=== PATIENT | female | born 1950 | race Caucasian/White ===

== ENCOUNTER 2017-09-09 22:05 | Observation (INO) ==
[2017-09-09] MEDS ORDERED: Nitroglycerin 0.4 MG TAB.SUBL SL ONE (22:12)
--- NOTE | 2017-09-09 22:25 | Emergency Department Note ---
Disposition Clinical Impression: Chest pain Qualifiers: Chest pain type: unspecified Qualified Code(s): R07.9 - Chest pain, unspecified Disposition: Admitted As Inpatient Condition: Good Referrals: Mariya Seymour MD [Primary Care Provider] - Forms: ED Satisfaction Letter Chest Pain HPI - General Chief Complaint: ED Chest Pain Stated Complaint: chest pain Time Seen by Provider: 09/09/17 22:11 Source: patient, EMS Mode of arrival: EMS Limitations: no limitations Vital Signs Reviewed: Yes Nursing Notes Reviewed: Yes - History of Present Illness HPI Narrative: 66-year-old female history of hypertension, "leaky aortic valve" who presents to the ER with a chief complaint of chest pain. Patient reports she felt well today and then roughly half an hour prior to arrival she was sitting at home and noticed her pulse was fast. She states she then developed pressure in the center of her chest with radiation into her shoulders. She states she felt short of breath during that time. No diaphoresis, dizziness, nausea or vomiting. She reports a prior history of a workup 2 years ago at the [facility] for valvular pathology which she states was fine and was told she could follow up in 5 years. She reports a history of a left heart catheterization 4 years performed here without any intervention. No history of early cardiac in her family. No other complaints. Patient was given one aspirin and one nitroglycerin prior to arrival. 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 Denies: nausea, vomiting, diaphoresis Treatments prior to arrival chest pain: aspirin, nitroglycerin - Related Data On Oral Contraceptives: No Home Medications Medication Instructions Recorded Confirmed Biotin 5 mg PO DAILY 11/23/15 11/23/15 BuPROPion SR (12 HR) [Wellbutrin 150 mg PO DAILY 11/23/15 11/23/15 SR] Carvedilol [Coreg] 6.25 mg PO BID 11/23/15 11/23/15 Cholecalciferol (Vitamin D3) 800 unit PO BID 11/23/15 11/23/15 [Vitamin D] Flaxseed/Omega3,6,9/Fatty Acid 1 each PO DAILY 11/23/15 11/23/15 [Flax Seed Oil 1,300 mg Softgel] Fluticasone Propionate Nasal 100 mcg NS BID PRN 11/23/15 11/23/15 [Flonase] Gabapentin [Neurontin] 300 mg PO TID 11/23/15 11/23/15 Garlic 1,000 mg PO TID 11/23/15 11/23/15 Grape Seed Extract [Grape Seed] 100 mg PO DAILY 11/23/15 11/23/15 Hydrocodone/Acetaminophen [[place] 1 tab PO Q6H PRN 11/23/15 11/23/15 5-325 Tablet] Lactobacillus Combination No.8 1 cap PO DAILY 11/23/15 11/23/15 [Adult Probiotic] Levothyroxine [Synthroid] 100 mcg PO DAILY 11/23/15 11/23/15 Loratadine [Claritin] 10 mg PO DAILY 11/23/15 11/23/15 Lutein 40 mg PO DAILY 11/23/15 11/23/15 Magnesium Oxide [Magnesium] 500 mg PO DAILY 11/23/15 11/23/15 Omeprazole [PriLOSEC] 20 mg PO DAILY 11/23/15 11/23/15 OxyCODONE/APAP 5/325 [Percocet 1 each PO Q8HR PRN 11/23/15 11/23/15 5/325 MG] Patient Taking Own Medication 1 tab PO DAILY 11/23/15 11/23/15 Prasterone (Dhea) [Dhea] 25 mg PO DAILY 11/23/15 11/23/15 Quercetin Dihydrate 250 mg PO TID 11/23/15 11/23/15 Turm/Ging/Tirso/Yuc/Jesus Alberto/Valarie/Hor 1 each PO TID 11/23/15 11/23/15 [Tumersaid Tablet] Ubidecarenone [Co Q10] 200 mg PO DAILY 11/23/15 11/23/15 hydroCHLOROthiazide 25 mg PO DAILY 11/23/15 11/23/15 [Hydrochlorothiazide] Previous Rx's Medication Instructions Recorded Doxycycline 100 mg PO BID #14 capsule 04/08/17 Allergies Allergy/AdvReac Type Severity Reaction Status Date / Time Erythromycin Base Allergy Swelling Verified 11/23/15 10:54 of Lip/Tongue/Throat Hydromorphone [From Dilaudid] Allergy Swelling Verified 11/23/15 10:54 of Lip/Tongue/Throat levofloxacin [From Levaquin] Allergy Swelling Verified 11/23/15 10:54 of Lip/Tongue/Throat Macrolide Antibiotics Allergy Swelling Verified 11/23/15 10:54 of Lip/Tongue/Throat meperidine [From Demerol] Allergy Swelling Verified 11/23/15 10:54 of Lip/Tongue/Throat methylprednisolone Allergy facial Verified 11/23/15 10:54 [From Medrol] swelling, insomnia metronidazole [From Flagyl] Allergy Swelling Verified 11/23/15 10:54 of Lip/Tongue/Throat Penicillins Allergy Swelling Verified 11/23/15 10:54 of Lip/Tongue/Throat Quinolones Allergy Swelling Verified 11/23/15 10:54 of Lip/Tongue/Throat shellfish derived Allergy Swelling Verified 11/23/15 10:54 of Lip/Tongue/Throat soy Allergy Swelling Verified 11/23/15 10:54 of Lip/Tongue/Throat [place] Allergy Swelling Verified 11/23/15 10:54 of Lip/Tongue/Throat Sulfa (Sulfonamide Allergy Swelling Verified 11/23/15 10:54 Antibiotics) of Lip/Tongue/Throat All systems ED: reviewed and negative except as stated. 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 - Social History Smoking Status: Never smoker Alcohol use: Reports: occasionally Drug use: Reports: none Physical Exam - General Limitations: no limitations General appearance: alert, in distress - Head Head exam: atraumatic, normocephalic - Eye Eye exam: Present: normal appearance - ENT ENT exam: normal exam - Neck Neck exam: Present: normal inspection, full ROM - Chest Chest inspection: Present: normal inspection, symmetric chest wall rise - Respiratory Respiratory exam: Present: normal lung sounds bilaterally - Cardiovascular Cardiovascular exam: Present: regular rate, normal rhythm, normal heart sounds - Abdominal Exam Abdominal exam: Present: soft, Non-Tender. Absent: tenderness - Extremities Exam Extremities exam: Present: normal inspection, full ROM - Expanded Upper Extremity Exam Shoulder exam: Present: normal inspection, full ROM Arm exam: Present: normal inspection, full ROM Elbow exam: Present: normal inspection, full ROM Forearm/Wrist exam: Present: normal inspection, full ROM Hand exam: Present: normal inspection, full ROM - Expanded Lower Extremity Exam Hip/Pelvis exam: Present: normal inspection, full ROM Upper leg exam: Present: normal inspection, full ROM Knee exam: Present: normal inspection, full ROM Lower leg exam: Present: normal inspection, full ROM Ankle exam: Present: normal inspection, full ROM Foot/toe exam: Present: normal inspection, full ROM - Skin Skin exam: Present: warm, dry Course Course Narrative: Patient seen and examined. EKG does not demonstrate STEMI. We will get an x- ray as well as labs including troponin. She did have an episode where she was bradycardic into the 40s as well as hypotensive roughly 50 systolic. Family bedside reports that she usually runs low. We will hold on nitroglycerin at this time and give her IV fluids. - Reevaluation(s) Reevaluation #1: Discussed results of imaging labs the patient. Her pain had improved to 3 without any intervention. We are holding on nitroglycerin at this time is she had an episode of hypotension. She is also listed is anaphylactic to most pain medications at our disposal currently. She agrees with admission to the hospital. We will talk with the hospitalist. Vital Signs Temperature 97.7 F 09/09/17 22:09 Pulse Rate 51 09/09/17 22:09 Respiratory Rate 18 09/09/17 22:09 Blood Pressure 92/57 09/09/17 22:09 O2 Sat by Pulse Oximetry 92 09/09/17 22:09 Temperature 97.7 F 09/09/17 22:09 Pulse Rate 87 09/09/17 23:50 Respiratory Rate 18 09/09/17 22:09 Blood Pressure 110/73 09/09/17 23:50 O2 Sat by Pulse Oximetry 95 09/09/17 23:50 Oxygen Delivery Oxygen Delivery Nasal Cannula Chest Pain - MDM Narrative Medical decision making narrative: 66-year-old female presents to the ER due to chest pain. Started abruptly prior to arrival at rest. Reports substernal with radiation into her shoulders. Associated dyspnea. Her initial EKG was sinus rhythm without ischemic features. Chest x-ray with atelectasis versus pneumonia. She is afebrile without a cough or leukocytosis. She was given 1 nitroglycerin and did have an episode of hypotension and bradycardia here. We are currently holding on any additional nitroglycerin as well as pain medication as she has prior anaphylactic reactions. Initial troponin within normal limits. Patient given IV fluids concern on maintenance fluids. She is admitted to the hospitalist service for chest pain. - Lab Data Lab results reviewed: Yes I reviewed the patient's lab results. Result diagrams: 09/09/17 22:22 09/09/17 22:22 Lab Results 09/09/17 09/09/17 09/09/17 Range/Units 22:22 22:22 22:22 WBC 6.4 (4.3-11.1) K/mcL RBC 4.29 (3.82-4.97) M/mcL Hgb 12.0 (11.5-15.4) g/dL Hct 37.6 (35.3-44.9) % MCV 87.6 (83.0-100.0) fL MCH 28.0 (28.0-33.3) pg MCHC 31.9 (31.6-35.5) g/dL RDW 14.0 (11.5-14.5) % Plt Count 253 (140-400) K/mcL MPV 9.0 L (9.4-12.4) fL Immature Gran % 0.3 (0-4) % Seg Neutrophils % 56.2 % Lymphocytes % 30.5 % Monocytes % 10.0 % Eosinophils % 2.5 % Basophils % 0.5 % Neutrophils # 3.6 (1.6-8.9) K/mcL Lymphocytes # 2.0 (0.6-4.6) K/mcL Monocytes # 0.6 (0.0-1.3) K/mcL Eosinophils # 0.2 (0.0-0.6) K/mcL Basophils # 0.0 (0.0-0.2) K/mcL PT 11.2 (9.4-12.1) Seconds INR 1.0 APTT 27.3 (26.0-36.0) Seconds Sodium (136-145) mEq/L Potassium (3.5-5.1) mEq/L Chloride (98-107) mEq/L Carbon Dioxide (23-29) mEq/L BUN (8-23) mg/dL Creatinine (0.60-1.20) mg/dL Est GFR ( Amer) (> 60) Est GFR (Non-Af Amer) (> 60) BUN/Creatinine Ratio (6-26) Glucose (70-105) mg/dL Calculated Osmolality (280-300) Calcium (8.6-10.3) mg/dL Troponin I (< 0.04) ng/mL B-Natriuretic Peptide 34 (Less than 100) pg/mL 09/09/17 09/09/17 Range/Units 22:22 22:22 WBC (4.3-11.1) K/mcL RBC (3.82-4.97) M/mcL Hgb (11.5-15.4) g/dL Hct (35.3-44.9) % MCV (83.0-100.0) fL MCH (28.0-33.3) pg MCHC (31.6-35.5) g/dL RDW (11.5-14.5) % Plt Count (140-400) K/mcL MPV (9.4-12.4) fL Immature Gran % (0-4) % Seg Neutrophils % % Lymphocytes % % Monocytes % % Eosinophils % % Basophils % % Neutrophils # (1.6-8.9) K/mcL Lymphocytes # (0.6-4.6) K/mcL Monocytes # (0.0-1.3) K/mcL Eosinophils # (0.0-0.6) K/mcL Basophils # (0.0-0.2) K/mcL PT (9.4-12.1) Seconds INR APTT (26.0-36.0) Seconds Sodium 140 (136-145) mEq/L Potassium 3.6 (3.5-5.1) mEq/L Chloride 107 (98-107) mEq/L Carbon Dioxide 25 (23-29) mEq/L BUN 10 (8-23) mg/dL Creatinine 0.71 (0.60-1.20) mg/dL Est GFR ( Amer) > 60 (> 60) Est GFR (Non-Af Amer) > 60 (> 60) BUN/Creatinine Ratio 14 (6-26) Glucose 106 H (70-105) mg/dL Calculated Osmolality 289 (280-300) Calcium 9.4 (8.6-10.3) mg/dL Troponin I < 0.03 (< 0.04) ng/mL B-Natriuretic Peptide (Less than 100) pg/mL - Radiology Data Radiology results reviewed: Yes I reviewed the patient's radiology results. Chest X-Ray 09/09/17 22:12 IMPRESSION: Bibasilar airspace disease, atelectasis versus pneumonia. D/ / Mireya Gann MD / Mireya Gann MD Interpreting Provider: Mireya Gann MD - EKG Data EKG attestation: Yes I reviewed and interpreted this EKG. EKG results narrative: EKG demonstrates sinus rhythm with rate of 77 bpm. Left axis deviation. Normal intervals. Normal R-wave progression. No gross ST elevations or depressions. No acute ischemic findings. No significant changes from previous EKG dated 02/03/15 Heart Score - Score History: Slightly Suspicious EKG: Normal Age: 45-65 Risk Factors: 1-2 risk factors Troponin: Less than normal limit HEART Score Total: 2 S.B.A.R. - S.B.A.R. Situation: Demographics, MOA Background: Presenting Complaint, Relevant PMH, Meds, & Allergies Assessment: Vital Signs, Course and respsone to treatment, Exam Concerns, Patient/Family Expectation, Pertinant Lab Results, Outstanding Labs Recommendation: Barrier(s) to disposition, Recommendation based on pending studies, treatments, or consults S.B.A.R. Report Given to: Dr. Davis S.B.A.R. Repor Time: 00:53 (Requests tele and [facility]) Attestation Statement - Attestation Attestation: I, Mulugeta Stone MD, personally evaluated this patient and discussed their management with the resident physician. I reviewed the resident's note and agree with the documented findings, medical decision making, and plan of care. 66-year-old female presents to the emergency department by embolus with a complaint of diffuse anterior chest pain which started about 30-40 minutes prior to arrival. Onset was while at rest. Patient describes the pain as like pressure on her chest. It started in the epigastric area and then radiated throughout the entire anterior chest up to the base of the neck. No radiation down the arms. Some mild nausea. No diaphoresis. No shortness of breath. Patient has had a cardiac catheter several years ago which was negative per patient. On examination patient is a well-developed well-nourished well-appearing elderly female in no acute distress. She does appear somewhat anxious. She is alert and oriented 3. There is no cyanosis or diaphoresis. Neck is supple and nontender with no lymphadenopathy. Breath sounds are clear and equal bilaterally. Heart regular rate and rhythm. Abdomen is soft and nontender with normal bowel sounds. No pedal edema. Labs reviewed. Troponin normal. EKG shows a normal sinus rhythm with a heart rate of 66. No acute ST segment elevation or depression or T-wave inversions to suggest acute ischemia. Chest x-ray shows some bibasilar airspace disease, atelectasis versus pneumonia. Patient has no cough or fever. Patient received aspirin and one nitroglycerin per EMS in route to the hospital with minimal relief. She rated her chest pain an 8 out of 10 at the worst. On arrival here she rated at 7 out of 10. After arrival here the patient had a vagal episode and became bradycardic with heart rate down in the 40s. She dropped her blood pressure to about 51/31 and became very pale and diaphoretic with decreased responsiveness. This episode resolved spontaneously over a few minutes. She was given a fluid bolus. The hospitalist, Dr. Davis, was consulted and accepted admission of the patient.
[2017-09-09] MEDS ORDERED: 0.9 % Sodium Chloride 1,000 ML IVC ONE (22:27)
[2017-09-09 22:31] LABS: Basophils % 0.5 %; Eosinophils # 0.2 K/mcL (0.0-0.6); Eosinophils % 2.5 %; Hematocrit 37.6 % (35.3-44.9); Immature Granulocytes % 0.3 % (0-4); Lymphocytes % 30.5 %; Mean Corpuscular HGB Conc 31.9 g/dL (31.6-35.5); Mean Corpuscular Volume 87.6 fL (83.0-100.0); Monocytes # 0.6 K/mcL (0.0-1.3); Neutrophils # 3.6 K/mcL (1.6-8.9); Platelet Count 253 K/mcL (140-400); Red Blood Count 4.29 M/mcL (3.82-4.97); Segmented Neutrophils % 56.2 %
[2017-09-09 22:37] LABS: Prothrombin Time 11.2 Seconds (9.4-12.1)
[2017-09-09 22:39] LABS: Activated Partial Thrombo Time 27.3 Seconds (26.0-36.0)
[2017-09-09 23:10] LABS: BUN/Creatinine Ratio 14 (6-26); Blood Urea Nitrogen 10 mg/dL (8-23); Calcium 9.4 mg/dL (8.6-10.3); Carbon Dioxide 25 mEq/L (23-29); Chloride 107 mEq/L (98-107); Glucose 106 mg/dL (70-105); Osmolality,Calculated 289 (280-300); Potassium 3.6 mEq/L (3.5-5.1); Sodium 140 mEq/L (136-145); eGFR For African Americans > 60 (> 60); eGFR For Non-African Americans > 60 (> 60)
[2017-09-10] MEDS ORDERED: 0.9 % Sodium Chloride 1,000 ML IVC SCH (00:45)
[2017-09-10] MEDS ORDERED: Acetaminophen 325 MG TABLET PO PRN (03:16)
[2017-09-10] MEDS ORDERED: Naloxone 0.4 MG/ML INJ IVP PRN (03:16)
[2017-09-10] MEDS ORDERED: Fluticasone Propionate Nasal 50 MCG/SPRAY BOTTLE NS PRN (03:19)
[2017-09-10] MEDS ORDERED: *HR* OxyCODONE Immed Rel 5 MG TABLET PO PRN ×2 (03:19→04:00)
--- NOTE | 2017-09-10 04:33 | Internal Med History&Physical ---
Date of Encounter: 09/10/17 Time of Encounter: 03:15 Assessment and Plan (1) Chest pain Current visit: Yes Status: Acute 1. Will cycle troponins and EKG's. 2. Will plan for stress test in the morning if above remain negative. 3. Will order ECHO to evaluate LV function and valves. Patient reports history of "leaky valve". Qualifiers: Chest pain type: precordial pain Qualified Code(s): R07.2 - Precordial pain (2) GERD (gastroesophageal reflux disease) Current visit: Yes Status: Chronic 1. Continue home Prilosec dosing. 2. If cardiac work-up negative, patient may need outpatient GI workup as cause for chest pain. Qualifiers: Esophagitis presence: without esophagitis Qualified Code(s): K21.9 - Gastro -esophageal reflux disease without esophagitis (3) Sleep apnea Current visit: Yes Status: Chronic [address] CPAP QHS per RT and per home settings. Qualifiers: Sleep apnea type: unspecified type Qualified Code(s): G47.30 - Sleep apnea , unspecified (4) DVT prophylaxis Current visit: Yes Status: Acute 1. Heparin SQ. Internal Medicine - H&P: HPI Chief complaint: chest pain Admitted From: Emergency Dept Plans for Post Hospital Care: Home History of present illness: Ms. Villalpando is a 66 year old female who presents with sudden onset of substernal chest pain and pressure earlier yesterday while walking and exercising. She noticed her heart racing fast as well. She waited a little bit and sat down trying to allay her fears. However, symptoms persisted, and so she came to the ER. Workup was essentially negative. However, given her chest pain and symptoms, she was admitted to the hospitalist service. Upon my assessment of the patient, she is pain-free and feels better. She states that the pain she experienced earlier felt like "an elephant sitting on my chest". She has never had that type of pain before. She has had prior episodes of chest pain many years ago. However, she describes those pains as minimal, short-lived, and "nothing like today". She denies any fevers, cough, congestion, shortness of breath, hemoptysis, or wheezing. She has had heart catheterization and stress test in the past but that was many years ago. Past Med Surg Social Fam HX - Past Medical History Attestation: Yes The following information was validated with the patient. Source: patient, old records reviewed Medical history: arthritis, GERD, thyroid disease, other (sleep apnea) Psychiatric history: no psych history - Past Surgical History Surgical History: breast surgery, cholecystectomy, hysterectomy, knee replacement, orthopedic, other, other - Social History Smoking Status: Never smoker Smokeless Tobacco Status: No Alcohol use: occasionally Drug use: none Current living situation: Home, With Family Activity Level: Independent ambulation, Very active - Family History Father Hx Family Cardiac Disorders: Yes Mother Living Status: Hx Family Cardiac Disorders: No Internal Medicine - H&P: Meds Biotin 5 mg PO DAILY 11/23/15 [History] BuPROPion SR (12 HR) [Wellbutrin SR] 150 mg PO DAILY 11/23/15 [History] Carvedilol [Coreg] 6.25 mg PO BID 11/23/15 [History] Cholecalciferol (Vitamin D3) [Vitamin D] 800 unit PO BID 11/23/15 [History] Flaxseed/Omega3,6,9/Fatty Acid [Flax Seed Oil 1,300 mg Softgel] 1 each PO DAILY 11/23/15 [History] Fluticasone Propionate Nasal [Flonase] 100 mcg NS BID PRN 11/23/15 [History] Gabapentin [Neurontin] 300 mg PO TID 11/23/15 [History] Grape Seed Extract [Grape Seed] 100 mg PO DAILY 11/23/15 [History] Lactobacillus Combination No.8 [Adult Probiotic] 1 cap PO DAILY 11/23/15 [ History] Loratadine [Claritin] 10 mg PO DAILY 11/23/15 [History] Lutein 40 mg PO DAILY 11/23/15 [History] Magnesium Oxide [Magnesium] 500 mg PO DAILY 11/23/15 [History] Omeprazole [PriLOSEC] 20 mg PO DAILY PRN 11/23/15 [History] Patient Taking Own Medication 1 tab PO DAILY 11/23/15 [History] Prasterone (Dhea) [Dhea] 25 mg PO DAILY 11/23/15 [History] Quercetin Dihydrate 250 mg PO TID 11/23/15 [History] Turm/Ging/Tirso/Yuc/Jesus Alberto/Valarie/Hor [Tumersaid Tablet] 1 each PO TID 11/23/15 [ History] Ubidecarenone [Co Q10] 200 mg PO DAILY 11/23/15 [History] hydroCHLOROthiazide [Hydrochlorothiazide] 25 mg PO DAILY 11/23/15 [History] OxyCODONE Immed Rel [Roxicodone 5 MG] 5 mg PO Q6H PRN 09/10/17 [History] Thyroid,Pork [[place] Thyroid] 60 mg PO DAILY 09/10/17 [History] 3 Allergy/AdvReac Type Severity Reaction Status Date / Time Erythromycin Base Allergy Swelling Verified 11/23/15 10:54 of Lip/Tongue/Throat Hydromorphone [From Dilaudid] Allergy Swelling Verified 11/23/15 10:54 of Lip/Tongue/Throat levofloxacin [From Levaquin] Allergy Swelling Verified 11/23/15 10:54 of Lip/Tongue/Throat Macrolide Antibiotics Allergy Swelling Verified 11/23/15 10:54 of Lip/Tongue/Throat meperidine [From Demerol] Allergy Swelling Verified 11/23/15 10:54 of Lip/Tongue/Throat methylprednisolone Allergy facial Verified 11/23/15 10:54 [From Medrol] swelling, insomnia metronidazole [From Flagyl] Allergy Swelling Verified 11/23/15 10:54 of Lip/Tongue/Throat Penicillins Allergy Swelling Verified 11/23/15 10:54 of Lip/Tongue/Throat Quinolones Allergy Swelling Verified 11/23/15 10:54 of Lip/Tongue/Throat shellfish derived Allergy Swelling Verified 11/23/15 10:54 of Lip/Tongue/Throat soy Allergy Swelling Verified 11/23/15 10:54 of Lip/Tongue/Throat [place] Allergy Swelling Verified 11/23/15 10:54 of Lip/Tongue/Throat Sulfa (Sulfonamide Allergy Swelling Verified 11/23/15 10:54 Antibiotics) of Lip/Tongue/Throat - Constitutional Constitutional: no chills, no fever(s) - EENT Eyes: no blurry vision, no change in vision Ears: no ear pain, no tinnitus Nose, mouth and throat: no nasal congestion, no nasal discharge, no sinus pressure, no sore throat - Cardiovascular Cardiovascular ROS IM: chest pain, dyspnea, dyspnea on exertion, palpitations, no diaphoresis, no lightheadedness, no syncope - Respiratory Respiratory: no cough, no hemoptysis, no chest congestion, no excessive phlegm production - Gastrointestinal Gastrointestinal: no abdominal pain, no diarrhea, no hematemesis, no hematochezia, no melena, no nausea, no vomiting - Genitourinary Genitourinary: no dysuria, no flank pain, no hematuria - Integumentary Integumentary IM: no rash, no jaundice - Neurological Neurological ROS: no dizziness, no focal weakness, no frequent falls, no headache(s) - Psychiatric Psychiatric: no anxiety, no depression - Endocrine Endocrine IM: no polydipsia, no polyuria - Hematologic/Lymphatic Hematologic/Lymphatic: no easy bruising, no lymphadenopathy - Allergic/Immunologic Allergic/Immunologic: no wheezing, no GI upset with certain foods - Constitutional Vitals: Temp Pulse Resp BP Pulse Ox 98.2 F 90 17 107/69 97 09/10/17 02:26 09/10/17 02:26 09/10/17 02:55 09/10/17 02:09/10/17 02:55 General appearance: Present: cooperative, A&O X 3, pleasant, no acute distress, answers questions appropriately - Head Head exam: Present: atraumatic, normal inspection - Eye Eye exam: Present: EOMI, normal appearance, PERRL. Absent: scleral icterus Pupils: Present: normal accommodation - ENT ENT exam: Present: mucous membranes moist, normal exam - Neck Neck exam general surgery: Present: full ROM, supple. Absent: lymphadenopathy, tenderness, nuchal rigidity - Expanded Neck Exam Neck exam: Absent: carotid bruit - Respiratory Respiratory exam: Present: CTAB. Absent: chest wall tenderness, rales, respiratory distress, rhonchi, wheezes - Cardiovascular Cardiovascular exam: Present: RRR, +S1, +S2. Absent: diastolic murmur, systolic murmur - GI/Abdominal GI/Abdominal exam: Present: normal bowel sounds, soft. Absent: hepatomegaly, mass, splenomegaly, tenderness - Extremities Exam Extremities exam: Present: normal capillary refill, warm. Absent: calf tenderness, joint swelling, pedal edema, tenderness - Back Exam Back exam: Absent: CVA tenderness (L), CVA tenderness (R) - Neurological Exam Neurological exam: Present: alert, CN II-XII intact, oriented X3, no focal deficits - Psychiatric Psychiatric exam: Present: normal affect, normal mood - Skin Skin exam: Present: dry, warm. Absent: rash Internal Med - H&P Results - Labs CBC & Chem 7: 09/09/17 22:22 09/09/17 22:22 - EKG Data -: EKG Interpreted by Myself - EKG Data Prior EKG available for review: no EKG comments: 09/10/17 04:38 NSR; LAD; no acute ST-T changes - Diagnostic Studies Chest x-ray Status: image reviewed by me (negative in my samy; ? atelectasis)
[2017-09-10] MEDS ORDERED: Regadenoson 0.4 MG/5 ML SYRINGE IVP ONE (06:05)
[2017-09-10] MEDS: *HR* Heparin 5,000 UNIT/ML VIAL SQ SCH ×2 (06:05→14:48)
[2017-09-10 06:18] LABS: Basophils % 0.3 %; Eosinophils % 0.5 %; Hematocrit 33.3 % (35.3-44.9); Hemoglobin 10.9 g/dL (11.5-15.4); Immature Granulocytes % 0.3 % (0-4); Lymphocytes # 1.1 K/mcL (0.6-4.6); Lymphocytes % 18.3 %; Mean Corpuscular HGB Conc 32.7 g/dL (31.6-35.5); Mean Corpuscular Hemoglobin 28.2 pg (28.0-33.3); Mean Corpuscular Volume 86.3 fL (83.0-100.0); Mean Platelet Volume 9.3 fL (9.4-12.4); Monocytes # 0.7 K/mcL (0.0-1.3); Monocytes % 12.1 %; Platelet Count 199 K/mcL (140-400); Red Blood Count 3.86 M/mcL (3.82-4.97); Red Cell Distribution Width 14.1 % (11.5-14.5); Segmented Neutrophils % 68.5 %
[2017-09-10 06:35] LABS: Alanine Aminotransferase 13 Units/L (7-52); Albumin 3.6 g/dL (3.5-5.7); Albumin/Globulin Ratio 1.7 (1.1-2.2); Alkaline Phosphatase 109 Units/L (34-104); Aspartate Amino Transferase 23 Units/L (13-39); BUN/Creatinine Ratio 13 (6-26); Bilirubin,Total 0.7 mg/dL (0.3-1.0); Blood Urea Nitrogen 7 mg/dL (8-23); Calcium 9.1 mg/dL (8.6-10.3); Carbon Dioxide 29 mEq/L (23-29); Chloride 106 mEq/L (98-107); Cholesterol 149 mg/dL (< 200); Globulin 2.1 g/dL (2.4-3.5); Glucose 116 mg/dL (70-105); HDL Cholesterol 75 mg/dL (40-59); LDL Cholesterol,Calculated 67 mg/dL (0-99); Magnesium 1.8 mg/dL (1.6-2.6); Osmolality,Calculated 287 (280-300); Potassium 3.4 mEq/L (3.5-5.1); Sodium 139 mEq/L (136-145); Total Protein 5.7 g/dL (6.4-8.9); Triglycerides 34 mg/dL (< 150); eGFR For African Americans > 60 (> 60); eGFR For Non-African Americans > 60 (> 60)
[2017-09-10 06:39] LABS: INR 1.1; Prothrombin Time 11.3 Seconds (9.4-12.1)
[2017-09-10 06:42] LABS: Activated Partial Thrombo Time 26.3 Seconds (26.0-36.0)
[2017-09-10] MEDS ORDERED: Loratadine 10 MG TABLET PO SCH (09:00)
[2017-09-10] MEDS: Gabapentin 300 MG CAPSULE PO SCH ×2 (11:35→14:24)
[2017-09-10] MEDS ORDERED: Thyroid (Amour) 30 MG TABLET PO SCH (14:30)
--- NOTE | 2017-09-10 14:32 | Electrocardiograph Report ---
[address] [place] [address] Test Date: 2017-09-09 Pat Name: Janell Villalpando Department: 104 Room: 3B44 Gender: F Sign Maintenance: : 1950 Requested By: Paulo Samuels Order Number: [id number] Reading MD: Chucky Dai DO Measurements Intervals [employer] Rate: 77 P: 28 HI: 149 QRS: -5 QRSD: 95 T: 24 QT: 395 QTc: 426 Interpretive Statements SINUS RHYTHM POSSIBLE LEFT ATRIAL ENLARGEMENT LOW QRS VOLTAGE IN PRECORDIAL LEADS POSSIBLE RIGHT VENTRICULAR CONDUCTION DELAY POSSIBLE ANTERIOR MYOCARDIAL INFARCTION, OF INDETERMINATE AGE Electronically Signed On 09-10-2017 14:30:54 EST by Chucky Dai DO
[2017-09-10 15:07] VITALS: BP 103/69
--- NOTE | 2017-09-10 18:28 | Discharge Summary ---
Date of Encounter: 09/10/17 Time of Encounter: 17:50 - Discharge Diagnosis (1) Chest pain Priority: Primary Status: Acute Comments: Pt reports sudden onset sub-sternal chest pressure with associated nausea, diaphoresis, and SOB. Pt has had same in the past, but not as bad as this episode. Pt states that she was unable to move due to the pain and called EMS to bring her to the hospital. No alleviating factors, but pressure was relieved with nitroglycerin by EMS. Pt has had no chest pain or pressure since that time. The pain is not reproducible with movement, palpation, or deep inspiration. Pt is tender to palpation in the epigastric area. Chest x-ray shows bibasilar airspace disease, atelectasis versus pneumonia. Patient denies cough, she has no tachycardia, she is afebrile, no tachypnea she is not requiring supplemental oxygen and she is normotensive. EKG shows sinus rhythm rate 77, OH interval 149, QRS 95, QTC 426. Patient denies prior NM or coronary artery disease. She does report having LHC 2 that were negative in the past. Patient does not see cardiology regularly. Echocardiogram shows preserved EF with mild LV DD, mild AR and ascending aorta at the upper limits of normal size for BSA. 3.6 cm. We will refer patient to vascular for continued evaluation. Stress test was negative for ischemia or infarct, gated EF greater than 70%. I suspect that chest pain is actually GI in nature, patient had eaten Cheetos approximately 20 minutes prior to episode. I will encourage patient to return to the emergency department if chest pain returns, I have encouraged her to speak with her primary care provider and have a GI workup and evaluation after discharge. Chest X-Ray 09/09/17 22:12 IMPRESSION: Bibasilar airspace disease, atelectasis versus pneumonia. D/ / Mireya Gann MD / Mireya Gann MD Interpreting Provider: Mireya Gann MD Echocardiogram 09/10/17 03:16 Impressions: LVEF 60-65%. Mild left ventricular diastolic dysfunction. Normal right ventricular structure and function. Aortic regurgitation appears mild although color-flow imaging and Doppler assessment may not be optimal on this study. No pulmonary hypertension. Ascending aorta size upper limits of normal for BSA, 3.6 cm. Qualifiers: Chest pain type: precordial pain Qualified Code(s): R07.2 - Precordial pain (2) DVT prophylaxis Priority: Secondary Status: Acute Comments: Heparin twice daily. Subcutaneous (3) GERD (gastroesophageal reflux disease) Priority: Secondary Status: Chronic Comments: Patient with long history of reflux symptoms. Last EGD was 5 years ago, last colonoscopy was 1.[address] jay. I have encouraged patient to take omeprazole daily 20 mg by mouth, increase to twice daily if symptoms do not resolve. Patient will need to follow-up with primary care for continued workup. Patient is tender to epigastric area and reports nausea with by mouth intake most of the time. Qualifiers: Esophagitis presence: without esophagitis Qualified Code(s): K21.9 - Gastro -esophageal reflux disease without esophagitis (4) Sleep apnea Priority: Secondary Status: Chronic Comments: Continue CPAP at home. Qualifiers: Sleep apnea type: unspecified type Qualified Code(s): G47.30 - Sleep apnea , unspecified - Discharge Medications Prescriptions: Omeprazole 20 mg PO DAILY #30 tablet.dr Diaz Medications: Biotin 5 mg PO DAILY 11/23/15 [History] Cholecalciferol (Vitamin D3) [Vitamin D3] 800 unit PO BID 11/23/15 [History] Grape Seed Extract [Grape Seed] 100 mg PO DAILY 11/23/15 [History] Lactobacillus Combination No.8 [Adult Probiotic] 1 cap PO DAILY 11/23/15 [ History] Loratadine [Claritin] 10 mg PO DAILY 11/23/15 [History] Lutein 40 mg PO DAILY 11/23/15 [History] Magnesium Oxide [Magnesium] 500 mg PO DAILY 11/23/15 [History] Omeprazole [PriLOSEC] 20 mg PO DAILY PRN 11/23/15 [History] Patient Taking Own Medication 1 tab PO DAILY 11/23/15 [History] Prasterone (Dhea) [Dhea] 25 mg PO DAILY 11/23/15 [History] Quercetin Dihydrate 250 mg PO TID 11/23/15 [History] Turm/Ging/Tirso/Yuc/Jesus Alberto/Valarie/Hor [Tumersaid Tablet] 1 each PO TID 11/23/15 [ History] Ubidecarenone [Co Q10] 200 mg PO DAILY 11/23/15 [History] hydroCHLOROthiazide [Hydrochlorothiazide] 25 mg PO DAILY 11/23/15 [History] Carvedilol [Coreg] 6.25 mg PO BIDWM tablet 09/10/17 [Rx] Cinryze 09/10/17 [History] Firazyr 09/10/17 [History] Gabapentin [Neurontin] 600 mg PO HS 09/10/17 [History] Meloxicam 15 mg PO DAILY 09/10/17 [History] Omeprazole 20 mg PO DAILY #30 tablet. 09/10/17 [Rx] OxyCODONE Immed Rel [Roxicodone 5 MG] 5 mg PO Q6H PRN 09/10/17 [History] Thyroid,Pork [[place]ton Thyroid] 60 mg PO DAILY 09/10/17 [History] Vit A/C/E AC/Znox/Cupric Oxide [Eye Vitamin-Minerals Tablet] 1 tab PO DAILY [History] buPROPion HCl [Bupropion HCl Sr] 200 mg PO BID 09/10/17 [History] Allergies/Adverse Reactions: 3 Allergy/AdvReac Type Severity Reaction Status Date / Time Erythromycin Base Allergy Swelling Verified 09/10/17 13:46 of Lip/Tongue/Throat Hydromorphone [From Dilaudid] Allergy Swelling Verified 09/10/17 13:46 of Lip/Tongue/Throat levofloxacin [From Levaquin] Allergy Swelling Verified 09/10/17 13:46 of Lip/Tongue/Throat Macrolide Antibiotics Allergy Swelling Verified 09/10/17 13:46 of Lip/Tongue/Throat meperidine [From Demerol] Allergy Swelling Verified 09/10/17 13:46 of Lip/Tongue/Throat methylprednisolone Allergy facial Verified 09/10/17 13:46 [From Medrol] swelling, insomnia metronidazole [From Flagyl] Allergy Swelling Verified 09/10/17 13:46 of Lip/Tongue/Throat Penicillins Allergy Swelling Verified 09/10/17 13:46 of Lip/Tongue/Throat Quinolones Allergy Swelling Verified 09/10/17 13:46 of Lip/Tongue/Throat shellfish derived Allergy Swelling Verified 09/10/17 13:46 of Lip/Tongue/Throat soy Allergy Swelling Verified 09/10/17 13:46 of Lip/Tongue/Throat [place] Allergy Swelling Verified 09/10/17 13:46 of Lip/Tongue/Throat Sulfa (Sulfonamide Allergy Swelling Verified 09/10/17 13:46 Antibiotics) of Lip/Tongue/Throat Procedures/tests Complete & Pending: Procedures Performed prior 72 hours Category Date Time Status NM gwendolyn perf SPECT multi [NM] Routine Exams 09/10/17 03:19 Taken ECG 12 lead ECG [ECG] AM 0600 Y 09/10/17 06:00 Ordered EV echocardiogram Routine Y 09/10/17 03:16 Completed SP pharm nuclear stress Routine Y 09/10/17 07:30 Completed Date of admission: 09/10/17 01:12 Primary care physician: Mariya Rockwell Consults: 09/10/17 01:54 Consult to Transport Tank Technician [CONS] Routine Reason for SW Consult: wants more information about advanced directives Discharging clinician: Krista Kauffman Anticipated date of discharge: 09/10/17 - Patient Status Disposition: Home, Self-Care Condition: Good Functional capacity at discharge: independent ambulation Overall status at discharge: patient is back to baseline - Discharge Instructions Follow Up With: Mariya Seymour MD [Primary Care Provider] - Additional Instructions: Please follow up with your PCP for a recheck and referral for GI/EGD. Return to the ER if you have another similar or worse episode or if you have any other problems or concerns. Resume all of your normal home medications and take your Omeprazole daily on an empty stomach, take 1 twice daily if your symptoms worsen. Resume your normal activities as tolerated, and diet as tolerated. Try to eat smaller, more frequent meals and avoid fried, fatty, or spicy foods. - Diet and Activity Activity: increase activity as tolerated, resume usual activities as tolerated Diet: advance to your usual diet Hospital course: Ms. Villalpando is a 66 year old female see assessment and plan for hospital course. - Time Spent with Patient Total time spent providing and/or coordinating discharge services: Less than 30 minutes - Constitutional Vitals: Temp Pulse Resp BP Pulse Ox 97.9 F 69 18 103/69 94 09/10/17 15:06 09/10/17 15:06 09/10/17 15:06 09/10/17 15:06 09/10/17 15:06 General appearance: Present: cooperative, A&O X 3, pleasant, no acute distress, answers questions appropriately - Head Head exam: Present: atraumatic, normal inspection, normocephalic - Eye Eye exam: Present: normal appearance, conjuntiva pink, sclera anicteric - Neck Neck exam general surgery: Present: normal inspection, supple, trachea midline. Absent: lymphadenopathy, tenderness - Respiratory Respiratory exam: Present: CTAB. Absent: accessory muscle use, rales, rhonchi, wheezes - Cardiovascular Cardiovascular exam: Present: RRR, +S1, +S2. Absent: diastolic murmur, gallop, rubs, systolic murmur - GI/Abdominal GI/Abdominal exam: Present: normal bowel sounds, soft, tenderness. Absent: distended, hepatomegaly - Extremities Exam Extremities exam: Present: normal capillary refill, normal inspection, warm, radial pulses palpable and symmetrical. Absent: calf tenderness, cyanotic, pedal edema, tenderness - Neurological Exam Neurological exam: Present: alert, oriented X3, no focal deficits. Absent: facial droop, speech deficit - Skin Skin exam: Present: dry, intact, normal color, warm. Absent: rash
== END 2017-09-10 18:57 | disposition home or self-care (01) ==
LOC: 3BNU 22:05 → EMEROO 22:05 → 3BNU 09-10 01:26
PROVIDERS: ADMIT Pediatrics; ATTEND Registered Nurse